=== PATIENT | male | born 1965 | race Caucasian/White ===

== ENCOUNTER 2021-05-19 05:20 | Day surgery (SDC) | payer MEDICAID ==
[~2021-05-19] VITALS: Ht 182.9 cm; Wt 145.4 kg
[2021-05-19] MEDS ORDERED: BENZOCAINE 20% 50 MCG/SPRAY 57 GM TP ONE (05:21)
[2021-05-19] MEDS ORDERED: LIDOCAINE 2% 30 ML JELLY TP ONE (05:21)
[2021-05-19] MEDS ORDERED: LIDOCAINE 4% 50 ML SOLUTION TP ONE (05:21)
[2021-05-19] MEDS ORDERED: ALBUTEROL SULFATE 2.5 MG/0.5 ML NEB SOLUTION NEB ONE (05:21)
[2021-05-19] MEDS ORDERED: SODIUM CHLORIDE 0.9% 1,000 ML ONE (05:42)
[2021-05-19] MEDS ORDERED: SODIUM CHLORIDE 0.9% 1,000 ML IV ONE (06:30)
[2021-05-19 06:42] LABS: COVID AG,FIA SOURCE NASOPHARYNGEAL
[2021-05-19] MEDS ORDERED: MIDAZOLAM HCL 5 MG/ML VIAL ONE (07:58)
[2021-05-19] MEDS ORDERED: FentaNYL CITRATE PF 100 MCG/2 ML VIAL ONE (07:58)
[2021-05-19] MEDS ORDERED: MethylPREDNISolone SOD SUCC 125 MG/2 ML VIAL ONE (08:23)
[2021-05-19] MEDS ORDERED: MethylPREDNISolone SOD SUCC 125 MG/2 ML VIAL IVP ONE (08:30)
== END 2021-05-19 09:50 | disposition home or self-care (01) ==
LOC: SURGERY 05:20
PROVIDERS: ATTEND Internal Medicine Critical Care Medicine
DX: J38.4 Edema of larynx (principal); B37.0 Candidal stomatitis; J43.9 Emphysema, unspecified; I10 Essential (primary) hypertension; Z79.899 Other long term (current) drug therapy; Z87.891 Personal history of nicotine dependence; Z87.442 Personal history of urinary calculi; Z98.890 Other specified postprocedural states
CPT/HCPCS: 31623; 31624; 71045; 87015; 87070; 87101; 87206; 87220; 87426; 88184; 88185; 93005; C9803; J2250; J2930; J3010; J7030; 88112; 88312; J7613; Z7610